=== PATIENT | male | born 2000 | race Caucasian/White ===

== ENCOUNTER 2022-05-14 22:47 | Emergency (ER) | payer BC ==
[2022-05-14] MEDS ORDERED: Lidocaine 1% (PF) 30 ML VIAL ONE (23:26)
== END 2022-05-15 | disposition home or self-care (01) ==
LOC: CSHERS 22:47
DX: S61.412A Laceration without foreign body of left hand, initial encounter (principal); W45.8XXA Other foreign body or object entering through skin, initial encounter
CPT/HCPCS: 12002; J2001